=== PATIENT | female | born 1990 | race Caucasian/White ===

== ENCOUNTER 2017-11-15 02:07 | Outpatient (CLI) | payer OTHER ==
[2017-11-15 02:59] VITALS: BP 127/79
[2017-11-15] MEDS ORDERED: MORPHINE 4 MG/ML VIAL IM SCH (04:30)
[2017-11-15] MEDS ORDERED: PROMETHAZINE 25 MG/1 ML VIAL IM ONE (04:30)
[2017-11-15] MEDS ORDERED: MORPHINE 10 MG/ML VIAL ONE (04:45)
[2017-11-15] MEDS ORDERED: MORPHINE 10 MG/ML VIAL IM SCH (04:46)
--- NOTE | 2017-11-28 08:16 | PROVIDER PROGRESS NOTE ---
Subjective - Prog Note Date Prog Note Date: 11/15/17 Prog Note Time: 06:00 - Subjective Pt reports feeling: No change (Patient was referred from [facility] for evaluation of uterine contractions. records requested. Patient reports uterine contractions beginningBefore midnight without suspicion of ruptured membranes. She has no's symptoms or signs suggestive of preeclampsia.) Physical Exam - Physical Exam General: positive: No acute distress HEENT: positive: Moist mucous membranes Neck: positive: Supple w/out meningeal sx Abdomen: positive: Other (Nontender gravid) Female : positive: Normal external, Dilated cervix (Cervical dilation did not progress appreciably during the observation.) Extremities: positive: No pedal edema PSYCH: positive: Anxious Assess/Plan - Patient Problems Active Problems Comments: Patient is here to rule out labor at term. Patient has mild contractions and it may be in the prodrome of labor. She would prefer to rest at home and therefore was given the option for therapeutic rest. She has adequate Transportation resources to return if labor ensues Morphine 10 mg IM with 25 mg of Phenergan. Patient instructed to keep her next visit at [facility] If her contractions increase in intensity or frequency she should return for recheck
== END 2017-11-15 05:05 | disposition home or self-care (01) ==
LOC: WFO 02:07 → FBP 02:09 → WFO 05:05
PROVIDERS: ATTEND Obstetrics & Gynecology
DX: O47.1 False labor at or after 37 completed weeks of gestation (principal); Z3A.40 40 weeks gestation of pregnancy
CPT/HCPCS: 96372; 99213

== ENCOUNTER 2017-11-15 13:26 | Outpatient (CLI) | payer OTHER | END 2017-11-15 13:27 | disposition critical access hospital (66) | LOC: EMS 13:26 | PROVIDERS: ATTEND Surgery | DX: Z39.0 Encounter for care and examination of mother immediately after delivery (principal) | CPT/HCPCS: A0425; A0429 ==